=== PATIENT | female | born 1935 | race Caucasian/White ===

== ENCOUNTER 2020-11-10 18:03 | Inpatient (IN) | payer OTHER ==
[~2020-11-10] VITALS: Ht 170.2 cm; Wt 69.2 kg
[2020-11-10 18:06] VITALS: BP 183/78
[2020-11-10 18:44] LABS: BASOPHILS 0.1 % (0.0-2.0); HEMATOCRIT 41.1 % (37.0-47.0); LYMPHOCYTES 2.4 % (24.0-44.0); MCH 26.7 pg (26.0-34.0); MCHC 31.7 g/dL (28.0-37.0); MCV 84.2 fL (80.0-100.0); MONOCYTES 3.6 % (1.0-8.0); PLATELET COUNT 244 thou/uL (150-400); POLYS 93.9 % (36.0-66.0); RBC 4.88 mil/uL (4.20-5.00); WBC 14.9 thou/uL (4.0-11.0)
[2020-11-10 18:51] LABS: URINE BLOOD NEGATIVE (Negative); URINE CLARITY CLEAR; URINE COLOR YELLOW; URINE GLUCOSE-RANDOM* NEGATIVE (Negative); URINE KETONES TRACE (Negative); URINE LEUKOCYTES-REFLEX TRACE (Negative); URINE NITRITE-REFLEX NEGATIVE (Negative); URINE PROTEIN (DIPSTICK) TRACE (Negative); URINE SPECIFIC GRAVITY 1.025 (1.005-1.035)
[2020-11-10 18:56] LABS: ICTOTEST (BILI CONFIRMATORY) Negative (Negative); URINE BILIRUBIN NEGATIVE (Negative)
[2020-11-10 19:00] LABS: CALCIUM 8.9 mg/dL (8.5-10.1); POTASSIUM 3.6 mmol/L (3.5-5.1); PROTIME 10.7 Seconds (9.3-11.4)
[2020-11-10 19:07] LABS: ALBUMIN 3.1 g/dL (3.4-5.0); TOTAL BILIRUBIN 0.7 mg/dL (0.2-1.0); TOTAL PROTEIN 7.2 g/dL (6.4-8.2)
[2020-11-10] MEDS ORDERED: COLACE100 MG PO (20:29)
[2020-11-10] MEDS ORDERED: ASA81BEC PO (20:29)
[2020-11-10] MEDS ORDERED: LISINOPRIL10 MG PO (20:30)
[2020-11-10] MEDS ORDERED: LEVOTHYROXINE150 MC1 PO (20:30)
[2020-11-10] MEDS ORDERED: DONEPEZIL HCL 55 M1 PO (20:30)
[2020-11-10] MEDS ORDERED: MIRALAX17 GM PO ×2 (20:31)
[2020-11-10] MEDS ORDERED: TOPROL XL25 MG PO (20:31)
[2020-11-10] MEDS ORDERED: SEROQUEL 25 MG25 MG PO (20:32)
[2020-11-10] MEDS ORDERED: SIMVASTATIN40 MG PO (20:33)
[2020-11-10] MEDS ORDERED: ZOFRAN4 MG PO (20:34)
[2020-11-11 05:24] LABS: HEMOGLOBIN 11.9 gm/dL (12.0-15.0); MCH 27.1 pg (26.0-34.0); MCHC 32.1 g/dL (28.0-37.0); MCV 84.3 fL (80.0-100.0); RBC 4.38 mil/uL (4.20-5.00); RDW 17.1 % (10.5-14.5); WBC 13.6 thou/uL (4.0-11.0)
[2020-11-11 05:32] LABS: CALCIUM 8.3 mg/dL (8.5-10.1); CREATININE 0.8 mg/dL (0.6-1.0)
[2020-11-11 05:37] LABS: POTASSIUM 3.9 mmol/L (3.5-5.1)
[2020-11-11 07:37] VITALS: BP 191/82
--- NOTE | 2020-11-11 07:48 | EKG ---
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
[2020-11-11 08:22] VITALS: BP 193/86
--- NOTE | 2020-11-11 09:20 | NUR ---
PT ARRIVED ON UNIT AT APPROX 0715. ADMITTED WITH SUSPECTED GI BLEED. COMES FROM A FACILITY. USES A WALKER AT HOME. UP TO BEDSIDE COMMODE WITH ASSIST X2. REST COMFORTABLY. CALL LIGHT WITHIN REACH. FREQUENT OBSERVATION.
--- NOTE | 2020-11-11 15:46 | NUR ---
PT ADMITTED RELATED TO GI BLEED. CM REVIEWED CHART AND SPOKE WITH CARE TEAM. CM CALLED AND SPOKE WITH PT'S DTR THIS AFTERNOON. SHE IS PT'S EMERGENCY CONTACT AND DPOA. SHE INDICATED THAT PT MOVED TO [facility]OUND [place]. 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 SHE INDICATED THAT PT HAD BEEN ON SERVICES WITH [facility], OT, AND ST. DTR INDICATED THAT SHE ANTICPATES PT RETURNING TO THE COMMUNITY AND RESUMING HH SERVICES ONCE MEDICALLY STABLE. CM NOTIFIED DTR THAT THEY WERE PLANNING AN EGD TOMORROW. CM TO CONTACT [facility] CLINICAL UPDATE. CM TO FOLLOW INDICATED WITH DC PLANNING.
[2020-11-11 19:33] VITALS: BP 166/74
--- NOTE | 2020-11-11 23:04 | NUR ---
PT AOX3, TO PERSON, PLACE, AND SITUATION, WITH INTERMITTENT FORGETFULNESS. PT DENIES PAIN AND SOB ON ROOM AIR. PT TOLERATING PO INTAKE OF FLUIDS AND CLEAR LIQUID DIET WITHOUT ISSUE. PT DENIES NAUSEA. PT AMBULATING WITH STANDBY TO X1 ASSIST WITH WALKER TO BATHROOM, PT WITH INTERMITTENT INCONTINENCE. PT WITH IMPULSIVENESS, ATTEMPTING TO GET UP WITHOUT ASSIST. PT CONTINUES TO HAVE BLOOD WITH VOIDS. LAB NOTIFIED THIS UNIT APPROX 1942 WITH COVID POSITIVE RESULT. ENVIRONMENTAL QUALITY ANALYST NOTIFIED. PT DAUGHTER, RONI NOTIFIED AT [phone]. PT DAUGHTER, RONI REPORTS PT RECEIVED COVID VACCINE ON 11/08/20, TESTED NEGATIVE PRIOR TO VACCINATION, IN ADDITION TO TESTING NEGATIVE X3 AT PREVIOUS FACILITY, AT [facility] IN [facility], AND PRIOR TO ADMITTING TO [place] AT [facility]. REPORT GIVEN TO SUBHASH ROBLEDO ON . PT TRANSFERRED TO [facility] AT 2300.
[2020-11-12 00:03] VITALS: BP 186/93
[2020-11-12 00:06] LABS: GLYCOHEMOGLOBIN (HGB A1C) 5.2 % (4.8-5.6)
[2020-11-12 02:25] VITALS: BP 187/97
[2020-11-12 03:13] VITALS: BP 140/63
--- NOTE | 2020-11-12 05:30 | NUR ---
PT ARRIVED FROM MED-SURG UNIT VIA W/C. PLACED IN ROOM 352. PT REPORTING THAT HER STOMACH JUST "FEELS UPSET." SLIGHT BELCHING NOTED. PT FURTHER REPORTED THAT HER STOMACH WAS "RUMBLING." ZOFRAN GIVEN TO WHICH PT WAS ABLE TO VOICE RELIEF OF THOSE SX. CONTINUE TO MONITOR.
[2020-11-12 07:20] VITALS: BP 158/77
[2020-11-12 10:04] LABS: HEMATOCRIT 35.2 % (37.0-47.0); HEMOGLOBIN 11.4 gm/dL (12.0-15.0)
--- NOTE | 2020-11-12 15:21 | NUR ---
SW received voice message from pt's dtr, Joann. SW reviewed chart and spoke with nursing. Pt was transferred to 3W from 4W due to positive COVID test. Pt placed in Enhanced Isolation. EGD planned for today has been cancelled. Recommendation made for pt to have EGD/colonoscopy as an outpatient. HAI spoke with Joann via phone. Provided update and answered questions. Phone number for 3W provided to pt's dtr. HAI is following to assist as needed with discharge planning.
[2020-11-12 16:05] VITALS: BP 171/86
--- NOTE | 2020-11-12 18:40 | NUR ---
RN ASSUMED PT'S CARE AT 0700AM , PT IS A&OX2 ( PERSON AND PLACE ), PT IS CONFUSED AT TIME, PT IS CONTINUING IV ABX , PT'EGD GI LAB IS ON HOLD ,BECAUSE PT HAS POSITIVE COVID, PT DOES NOT BLOOD STOOL TODAY, BUT PT STILL HAS N/V.
[2020-11-12 19:52] VITALS: BP 188/94
--- NOTE | 2020-11-13 00:36 | NUR ---
PT AT BEGINNING OF SHIFT SITTING UP IN CHAIR. PT ASSISTED TO USE BSC AND PT RETURNED TO BED. IVF INTACT. BED ALARM ON. NO C/O NAUSEA. PT ORIENTED TO SELF AND SITUATION, NOT TIME.
[2020-11-13 03:57] VITALS: BP 171/74
[2020-11-13 08:16] VITALS: BP 178/75
[2020-11-13 10:39] LABS: HEMATOCRIT 34.7 % (37.0-47.0); HEMOGLOBIN 11.1 gm/dL (12.0-15.0)
--- NOTE | 2020-11-13 13:35 | NUR ---
HAI reviewed chart and spoke with nursing and attending physician. Pt remains in Enhanced Isolation due to COVID-19. Pt is afebrile and not requiring O2. Pt is on IV abx and IV steroids. Discharge is anticipated for tomorrow. HAI left voice message for [facility] regarding pt being COVID positive and determine if they require an additional test prior to pt returning. HAI spoke with pt's dtr, Estrellita, via phone to provide update and discuss discharge plan. Estrellita requests HAI to find out if pt can have EGD/colonoscopy prior to discharge due to pt being in AL setting and unable to have 24 hour care/family assistance with completing bowel prep for outpatient EGD/colonoscopy. HAI discussed with GI PICTURE ENLARGER, who will follow up with pt's dtr. HAI is following to assist as needed with discharge planning.
[2020-11-13 15:16] VITALS: BP 186/100
--- NOTE | 2020-11-13 17:47 | NUR ---
ASUMED CARE OF PT AT 0700. PT ALERT AND ORIENTED, FORGETFUL AND OCCASIONAL PERIOD OF CONFUSION. COMPLAINS OF NAUSEA WITH MOVEMENT. NO RELIEF WITH ZOFRAN - REGLAN SHOWING SOME IMPROVEMENT. FORGETFUL ABOUT USING CALL LIGHT TO USE BSC. UP W/ 1 ASSIST. IVF INFUSING PER ORDER. ANTICIPATE D/C SOON.
[2020-11-13 19:22] VITALS: BP 180/84
[2020-11-14 03:57] VITALS: BP 170/75
--- NOTE | 2020-11-14 06:04 | NUR ---
VSS OVERNIGHT. PT UP TO BSC WITH SBA. POC WITH IVF GTT AND IVPB ANTIBIOTICS. PT REQUESTED X1 NAUSEA MEDICATION AT 2100 ASSESSMENT. CALL LIGHT WITHIN REACH.
[2020-11-14 07:52] VITALS: BP 176/86
--- NOTE | 2020-11-14 12:01 | NUR ---
HAI reviewed chart and spoke with nursing and attending physician. Pt remains in Enhanced Isolation due to COVID. Pt is afebrile and not requiring O2. Pt is on IV abx and IV steroids. Pt is completing course of Ivermectin. HAI spoke with Lidia at [facility] last evening, who states they will require another COVID test prior to pt returning. COVID test ordered today. Discharge back to [facility] is planned for tomorrow. HAI spoke with pt's dtr, Estrellita, via phone to provide update and discuss discharge plan. HAI updated regarding plan for outpatient EGD/colonoscopy due to COVID. HAI provided contact info for GI office to pt's dtr per her request. Per Estrellita, pt has HH already in place at the facility. Pt will need transportation. HAI is following to assist as needed with discharge planning.
--- NOTE | 2020-11-14 12:06 | HC ---
[facility] [place] [address] CONSULTATION Name: DARRYL LEIGH Room #: 352-P ADM IN M.R.#: [id number] Admission: 11/10/20 Attend Phys: Stephanie Littlejohn MD Discharge: Date of : 33 Report #: [id number] THIS REPORT FOR: cc: Morgan Olivares MD, Christopher B. MD Barry, Joseph W. MD ~ DATE OF SERVICE: 11/13/2020 INFECTIOUS DISEASE CONSULTATION ATTENDING PHYSICIAN: Dr. Littlejohn. REASON FOR EVALUATION: COVID-19 infection and possible infectious colitis. HISTORY OF PRESENT ILLNESS: Chart reviewed, patient examined. This is an 85-year-old man with a history of hypothyroidism, apparently some dementia as well, although she is lucid now, who is admitted with complaints of hematochezia, hematemesis, fairly abrupt onset the day of admission. She experienced headaches, experienced some nausea as well. She is concerned about active GI hemorrhage. She was admitted to the hospital, did note possible left basilar infiltrate, atelectasis. CT of the abdomen and pelvis showed acute sigmoid descending colitis with some evidence of diverticulitis as well. She was empirically placed on piperacillin/tazobactam. She was scheduled to undergo EGD and colonoscopy, though in the interim was found to have a positive coronavirus PCR test. At this point, she is on no supplemental oxygen. Denies any significant pulmonary-related complaints. She does note earlier this month had received the coronavirus vaccination. ALLERGIES: None known. MEDICATIONS: Dexamethasone, lisinopril, metoclopramide, metoprolol, levothyroxine, quetiapine, donepezil, aspirin, pantoprazole, Zosyn and p.r.n. analgesics. PAST MEDICAL HISTORY: Hypothyroidism, high cholesterol, question dementia. SOCIAL HISTORY: Nonsmoker, no ethanol, no illicit drug use. FAMILY HISTORY: Noncontributory. REVIEW OF SYSTEMS: Notable she has had nausea on and off for the last 1-2 years, primarily in the morning. She does take small amount of milk that seems to improve it. Also has noted some weight loss since March of roughly 20 pounds, which she cannot attribute or account for. [facility] [address] [place] [address] CONSULTATION Name: DARRYL LEIGH Room #: [address] [place] [address] IN M.R.#: [id number] Admission: 11/10/20 Attend Phys: Stephanie Littlejohn MD Discharge: Date of : 33 Report #: [id number] PHYSICAL EXAMINATION: GENERAL: She appears somewhat chronically ill, undernourished. She is pleasant, cooperative, in mild distress. VITAL SIGNS: Temperature 98.3, pulse 93, respirations 20, blood pressure 186/100. SKIN: Warm, dry, no rashes. HEENT: Normocephalic. Extraocular muscles intact. NECK: Supple. LUNGS: Diminished breath sounds. HEART: Regular. I do not appreciate murmur. ABDOMEN: Mildly distended, soft, no peritoneal signs. GENITOURINARY: Deferred. RECTAL: Deferred. LABORATORY DATA: Hemoglobin and hematocrit 11.1 and 34.7. Blood cultures x 2 collected on the are sterile thus far. Hemoglobin A1c 5.2. Coronavirus PCR was positive. CBC on , white count of 13.6 and platelets of 214. Electrolytes: Sodium 136, potassium 3.9, chloride 102, bicarbonate 24, anion gap of 10, BUN and creatinine 13 and 0.8. Lactic acid initially was 2.3, repeat was 1.3. TSH is low at 0.125. DIAGNOSTIC DATA: CT abdomen and pelvis showed descending and sigmoid acute colitis, moderate sigmoid diverticulosis. No abscess or evidence of perforation. Chest x-ray, minimal left basilar interstitial opacities, has question of scarring versus infiltrate, atelectasis, mild cardiomegaly. Urinalysis is unremarkable. ASSESSMENT AND PLAN: 1. COVID-19 positive test, certainly may be attenuated due to previous immunization. We will dose with ivermectin. Continue current therapy with corticosteroids. 2. Gastrointestinal bleeding, not entirely clear as to the etiology at this point, wait procedures. She notes she has been constipated and we wonder if there is some sort of issue causing ischemic area of that particular part of the colon. She also notes she has had nausea and weight loss, this has been going on for a number of months, seems to be a question of occult process as well. She has perception that this is likely something significant. She has had imaging tests. We will await results of again procedures to help clarify. <ELECTRONICALLY SIGNED> By: Eddie Arevalo MD 11/14/20 1206 [id number] 41 Eddie Arevalo MD /nt
[2020-11-14 15:49] VITALS: BP 184/85
--- NOTE | 2020-11-14 16:54 | NUR ---
ASSUMED CARE OF PT AT 0700. PT AOX4 WITH OCCASIONAL PERIODS OF CONFUSION. STILL DEALING WITH NAUSEA, ALBEIT IMPROVING. TRIALING FULL LIQUIDS. BP REMAINS HIGH - TREATED WITH PRN HYDRALIZINE. NO OTHER CHANGES TO REPORT.
[2020-11-14 20:25] VITALS: BP 161/66
[2020-11-15 03:16] VITALS: BP 170/77
--- NOTE | 2020-11-15 06:43 | NUR ---
SBA TO BSC. PT HAS BEEN SWITCHED OVER TO ORAL ANTIBIOTICS, WHILE STILL HAVING COMPLAINTS OF NAUSEA. VSS OVERNIGHT AND PT USES CALL LIGHT WHEN NEEDING ASSISTANCE TO BSC.
[2020-11-15 07:50] VITALS: BP 166/79
--- NOTE | 2020-11-15 11:06 | NUR ---
HAI reviewed chart and spoke with nursing and attending physician. Pt remains in Enhanced Isolation. Pt had repeat COVID test yesterday, which was negative. HAI faxed COVID test results and clinical/therapy notes to [facility] for review. HAI spoke with Valery, who will review info and discuss with the clinical team to ensure they are able to accept pt back at her current level, or if they feel pt may need SNF placement. HAI spoke with pt's dtr, Estrellita, via phone to provide update. Estrellita is hopeful that pt can return to [facility] and resume her prior therapy services. Pt is currently on a full liquid diet. Nursing to discuss with GI about advancing diet. HAI provided Valery at [facility] with 3W contact info, if they have questions for the bedside RN. Awaiting input from [facility] at this time. HAI is following to assist as needed with discharge planning.
[2020-11-15 15:23] VITALS: BP 130/70
[2020-11-15 19:14] VITALS: BP 110/53
[2020-11-16 03:57] VITALS: BP 138/58
[2020-11-16 07:56] VITALS: BP 152/75
[2020-11-16] MEDS ORDERED: AMOX TR-K CLV1 EAC4 PO (08:36)
[2020-11-16] MEDS ORDERED: NORVASC5 MG PO (08:38)
[2020-11-16] MEDS ORDERED: PROTONIX 20 MG20 M1 PO (08:38)
[2020-11-16] MEDS ORDERED: SYNTHROID100 MC1 PO (08:38)
[2020-11-16 09:18] VITALS: BP 152/75
--- NOTE | 2020-11-16 13:06 | NUR ---
assumed patient care at 0700. a/o x3. no distress noted. on ra. will dc to [facility] at 1400.
--- NOTE | 2020-11-16 13:18 | NUR ---
PT DISCHARGING TODAY TO [facility] FAXED DC ORDERS/SUMMARY TO FACILITY [facility] WITH [employer] IN ADM SHE RECEIVE DRDERS AND ARRANGED TRANSPORT BY [facility] FOR 1400 TODAY. SPOKE WITH PT'S DTR (RONI) SHE IS IN AGREEMENT WITH DC AND TIME OF TRANSPORT. WANTED TO MAKE SURE FACILITY AWARE PT CANNOT HAVE SPICY FOOD OR ONIONS AND LIKES VAN[employer] ICE CREAM THIS WAS ADDED TO DC ORDERS ALSO NOTIFIED FACILITY OF THIS. UNIT NOTIFIED AND CHART COPY PER US. RN TO CALL REPORT TO [phone].
== END 2020-11-16 15:04 | DRG 871 ==
LOC: ER 18:03 → 3W 21:02 → 4S 21:02 → EROBS 21:02 → 4S 11-11 08:44 → 3W 11-11 23:00
PROVIDERS: Anesthesiology; Emergency Medicine; Nurse Practitioner; Nurse Practitioner Family; ADMIT Hospitalist; ATTEND Hospitalist
DX: A41.89 Other specified sepsis (principal); U07.1 COVID-19; K57.33 Diverticulitis of large intestine without perforation or abscess with bleeding; K55.1 Chronic vascular disorders of intestine; K51.50 Left sided colitis without complications; E87.1 Hypo-osmolality and hyponatremia; K92.0 Hematemesis; K92.1 Melena; E03.9 Hypothyroidism, unspecified; I10 Essential (primary) hypertension; K21.9 Gastro-esophageal reflux disease without esophagitis; R73.9 Hyperglycemia, unspecified; F03.90 Unspecified dementia, unspecified severity, without behavioral disturbance, psychotic disturbance, mood disturbance, and anxiety; E78.5 Hyperlipidemia, unspecified; D64.9 Anemia, unspecified; E78.00 Pure hypercholesterolemia, unspecified; Z96.653 Presence of artificial knee joint, bilateral; Z90.710 Acquired absence of both cervix and uterus; Z79.899 Other long term (current) drug therapy; Z79.82 Long term (current) use of aspirin; Z90.49 Acquired absence of other specified parts of digestive tract
CPT/HCPCS: 10779